=== PATIENT | male | born 1965 | race African-American/Black ===

== ENCOUNTER 2019-08-14 05:59 | Inpatient (IN) | payer BC, OTHER ==
[2019-08-09 09:58] VITALS: BMI 25.1
[2019-08-14] MEDS ORDERED: CEFAZOLIN 2 GM in DEXTROSE 5%-WATER - 50 ML IVPB ONE (06:24)
[2019-08-14] MEDS ORDERED: CELECOXIB 200 MG CAPSULE PO ONE (06:24)
[2019-08-14] MEDS ORDERED: oxyCODONE HCL 10 MG SUSTAINED ACTING TABLET PO ONE (06:24)
[2019-08-14] MEDS ORDERED: TRANEXAMIC ACID 1000 MG/10 ML VIAL IVPUSH ONE (06:24)
[2019-08-14] MEDS ORDERED: BUPIVICAINE 0.25%/MORPH PF/KETOROLAC - 51ML DISP.SYRINGE IA ONE ×2 (06:24→11:25)
[2019-08-14] MEDS ORDERED: PANTOPRAZOLE 40 MG TABLET PO ONE (06:25)
[2019-08-14] MEDS ORDERED: MIDAZOLAM HCL 2 MG/2 ML SINGLE DOSE VIAL ONE ×3 (07:05→07:36)
[2019-08-14] MEDS ORDERED: ROPIVACAINE HCL 0.5% 30ML VIAL ONE ×2 (07:06→07:38)
[2019-08-14] MEDS ORDERED: VANCOMYCIN 1,000 MG VIAL (RESTRICTED TO ID ONLY) ONE (07:10)
[2019-08-14] MEDS ORDERED: ceFAZolin SODIUM 1 GM VIAL ONE ×2 (07:10→11:16)
[2019-08-14] MEDS ORDERED: EPHEDRINE SULFATE/0.9% NACL/PF 50 MG/10 ML SYRINGE NR ONE (07:35)
[2019-08-14] MEDS ORDERED: PROPOFOL 20 ML ONE ×4 (07:35→11:03)
[2019-08-14] MEDS ORDERED: SUCCINYLCHOLINE CHLORIDE 200 MG/10 ML SYRINGE ONE (07:36)
--- NOTE | 2019-08-14 07:43 | HP ---
Admitting History and Physical - Admission Chief Complaint: Left hip osteoarthritis x years History of Present Illness: 54 year old male presents today in regard to his left hip. Longstanding history of left hip osteoarthritis. Patient complains of pain, limited ROM, difficulty ambulating and difficulty completing activities of daily living. Patient has failed conservative treatment options including PO medications, injections, exercise programs and activity modification. Diagnostic testing reveals severe osteoarthritis of the left hip joint. At this point, patient would like to proceed with surgical intervention; a left total hip arthroplasty, MAKOplasty. History Source: Patient - Past Medical History Cardiovascular: Yes: HTN ENT: Yes: Allergic Rhinitis - Past Surgical History Additional Past Surgical History: Right wrist ligament repair in 2004 Right knee ACL reconstruction 1983 - Smoking History Smoking history: Never smoked Home Medications - Allergies Allergies/Adverse Reactions: Allergies Allergy/AdvReac Type Severity Reaction Status Date / Time seasonal Allergy Uncoded 08/09/19 09:50 - Home Medications Home Medications: Ambulatory Orders Telmisartan/Hydrochlorothiazid [Telmisartan-Hctz 40-12.5 mg Tb] 1 each PO DAILY 08/09/19 Review of Systems - Review of Systems Musculoskeletal: reports: Decreased ROM (left hip), Joint Pain (left hip) Physical Examination Vital Signs: Vital Signs Temperature 98 F 08/14/19 06:39 Pulse Rate 70 08/14/19 06:39 Respiratory Rate 18 08/14/19 06:39 Blood Pressure 137/90 08/14/19 06:39 O2 Sat by Pulse Oximetry (%) 98 08/14/19 06:39 Constitutional: Yes: Well Nourished, No Distress Eyes: Yes: Conjunctiva Clear HENT: Yes: Atraumatic Neck: Yes: Supple Cardiovascular: Yes: Regular Rate and Rhythm Respiratory: Yes: Regular Gastrointestinal: Yes: Soft ...Rectal Exam: Yes: Deferred Musculoskeletal: Yes: Joint Stiffness (left hip), Other (Limited ROM left hip) Assessment/Plan 54 year old male presents today in regard to his left hip. Longstanding history of left hip osteoarthritis. Patient complains of pain, limited ROM, difficulty ambulating and difficulty completing activities of daily living. Patient has failed conservative treatment options including PO medications, injections, exercise programs and activity modification. Diagnostic testing reveals severe osteoarthritis of the left hip joint. At this point, patient would like to proceed with surgical intervention; a left total hip arthroplasty, MAKOplasty. Pros, cons, risks, benefits & alternatives of a left total hip arthroplasty, MAKOplasty was discussed with the patient at length. Patient confirms his understanding and consents to proceed with a left total hip arthroplasty - MAKOplasty.
[2019-08-14] MEDS ORDERED: BUPIVACAINE HCL/PF 0.5% (5MG/ML) 10 ML VIAL ONE (08:33)
[2019-08-14] MEDS ORDERED: VANCOMYCIN 1,000 MG VIAL (RESTRICTED TO ID ONLY) IVPB ONE (10:31)
[2019-08-14] MEDS ORDERED: TRANEXAMIC ACID 1000 MG/10 ML VIAL IVPB ONE (10:33)
[2019-08-14] MEDS ORDERED: ceFAZolin SODIUM 1 GM VIAL IVPB ONE (11:19)
[2019-08-14] MEDS ORDERED: TRANEXAMIC ACID 1000 MG/10 ML VIAL ONE (11:48)
--- NOTE | 2019-08-14 12:50 | OP ---
Operative Note - Note: Operative Date: 08/14/19 Pre-Operative Diagnosis: Left hip OA Operation: Left KYREE MARGARET Post-Operative Diagnosis: Same as Pre-op Surgeon: Evan Carrera Boarding House Manager: Antony Metzger Anesthesia: Spinal Estimated Blood Loss (mls): 200
[2019-08-14] MEDS: ACETAMINOPHEN 1000 MG/100 ML VIAL (NON FORMULARY) IVPB ONE ×2 (12:55→14:03)
[2019-08-14] MEDS: traMADol HCL 50 MG TABLET PO SCH ×3 (13:06→19:00)
[2019-08-14] MEDS ORDERED: oxyCODONE HCL 5 MG TABLET PO PRN ×2 (13:19→13:20)
[2019-08-14] MEDS ORDERED: MAGNESIUM HYDROX 2400MG/30ML ORAL SUSPENSION 30 ML CUP PO PRN (13:20)
[2019-08-14] MEDS ORDERED: MAG HYDROX/AL HYDROX/SIMETH 30 ML UNIT-DOSE CUP PO PRN (13:20)
[2019-08-14] MEDS ORDERED: ONDANSETRON 4 MG/2 ML VIAL IVPUSH PRN (13:20)
[2019-08-14] MEDS ORDERED: oxyCODONE HCL 5 MG TABLET ONE (13:21)
[2019-08-14] MEDS ORDERED: LACTATED RINGERS SOLUTION 1,000 ML IV SCH (13:30)
[2019-08-14] MEDS: KETOROLAC TROMETHAMINE 30 MG/1 ML VIAL IVPUSH SCH (17:41)
[2019-08-14] MEDS: CEFAZOLIN 2 GM/D5W 2 GM/50 ML ML IVPB SCH (17:41)
[2019-08-14] MEDS: ACETAMINOPHEN 325 MG TABLET (FP) PO SCH (19:01)
[2019-08-14] MEDS ORDERED: DEXAMETHASONE SOD PHOSPHATE 10 MG/1 ML VIAL IVPB ONE (20:00)
[2019-08-14] MEDS: GABAPENTIN 300 MG CAPSULE PO SCH (21:30)
[2019-08-14] MEDS: ASCORBIC ACID 500 MG TABLET (FP) PO SCH (21:30)
[2019-08-14] MEDS: CELECOXIB 200 MG CAPSULE PO SCH (21:30)
[2019-08-14] MEDS: SENNOSIDES/DOCUSATE COMBO (SENNA PLUS) TABLET (UD) PO SCH (21:30)
[2019-08-14] MEDS: oxyCODONE HCL 10 MG SUSTAINED ACTING TABLET PO SCH (21:31)
[2019-08-15] MEDS: traMADol HCL 50 MG TABLET PO SCH ×4 (00:34→19:11)
[2019-08-15] MEDS: KETOROLAC TROMETHAMINE 30 MG/1 ML VIAL IVPUSH SCH ×3 (00:35→12:42)
[2019-08-15] MEDS: ACETAMINOPHEN 325 MG TABLET (FP) PO SCH ×4 (00:36→19:11)
[2019-08-15] MEDS: CEFAZOLIN 2 GM/D5W 2 GM/50 ML ML IVPB SCH (01:47)
--- NOTE | 2019-08-15 07:17 | SURG ---
Surgery Ecosystem Ecology Professor Note Ecosystem Ecology Professor: Antony Metzger PA-C (Suzy) Date of Service: 08/15/19 Diagnosis: Left hip OA Procedure: Operation: Left KYREE MARGARET I was present for the entirety of the operative procedure. For further detail, please refer to operative report. Visit type - Case Type Case Type: Scheduled - Emergency Emergency Visit: No - New patient This patient is new to me today: Yes Date on this admission: 08/15/19 - Critical Care Critical Care patient: No
[2019-08-15 08:12] LABS: CALCIUM 8.4 mg/dl (8.5-10); POTASSIUM 4.2 mmol/L (3.5-5.1)
[2019-08-15 08:18] LABS: HEMATOCRIT 38.9 % (35.4-49); HEMOGLOBIN 13.2 GM/dl (11.7-16.9); MCH 30.4 pg (25.7-33.7); MEAN CELL VOLUME 89.4 fl (80-96); MEAN PLT VOLUME 8.4 fl (7.5-11.1); PLATELET COUNT 237 K/MM3 (134-434); RBC 4.35 M/mm3 (4.00-5.60); RDW 11.9 % (11.9-15.9); WHITE BLOOD COUNT 12.9 K/mm3 (4.0-10.8)
[2019-08-15] MEDS: ASPIRIN 325 MG TABLET PO SCH (09:00)
[2019-08-15] MEDS: MULTIVITAMINS (DAILY MVI) TABLET (FP) PO SCH (09:26)
[2019-08-15] MEDS: PANTOPRAZOLE 40 MG TABLET PO SCH (09:26)
[2019-08-15] MEDS: oxyCODONE HCL 10 MG SUSTAINED ACTING TABLET PO SCH ×2 (09:26→21:58)
[2019-08-15] MEDS: ASCORBIC ACID 500 MG TABLET (FP) PO SCH ×2 (09:26→21:58)
[2019-08-15] MEDS: CELECOXIB 200 MG CAPSULE PO SCH ×2 (09:27→21:58)
[2019-08-15] MEDS: SENNOSIDES/DOCUSATE COMBO (SENNA PLUS) TABLET (UD) PO SCH ×2 (09:27→21:58)
[2019-08-15] MEDS: HYDROCHLOROTHIAZIDE 12.5 MG CAPSULE (FP) PO SCH (09:27)
[2019-08-15] MEDS: GABAPENTIN 300 MG CAPSULE PO SCH ×2 (09:27→21:58)
[2019-08-15] MEDS: LOSARTAN POTASSIUM 50 MG TABLET (FP) PO SCH (09:28)
--- NOTE | 2019-08-15 12:24 | SPEC ---
DATE OF OPERATION: 08/14/2019 PREOPERATIVE DIAGNOSIS: Left hip osteoarthritis. POSTOPERATIVE DIAGNOSIS: Left hip osteoarthritis. PROCEDURE: Left total hip replacement with JEAN MARIE plasty robotic navigation. ATTENDING: Richard Taveras MD INTERCEPTOR OPERATOR: RUDY Galvez ANESTHESIA: Spinal plus sedation. ESTIMATED BLOOD LOSS: 200 mL. COMPLICATIONS: None. DISPOSITION: The patient was transferred to the PACU in stable condition. IMPLANTS USED: Johann Accolade II size 7 femoral compartment with 127-degree neck angle, 56-mm acetabular component with 15, 20, and 25-mm acetabular screws. MDM bipolar head ball and liner with inner +8-mm offset head ball. INDICATIONS: This is a 54-year-old male who presented to the office complaining of bilateral hip pain. He was seen and examined by Dr. Taveras, diagnosed with bilateral hip osteoarthritis. The patient's left hip was significantly more painful than the right, though both appeared to be degenerated on radiographs. He was initially treated conservatively but continued to have severe pain and ambulatory dysfunction. He was therefore indicated for a left total hip replacement. The risks, benefits, and alternatives to the procedure were explained to the patient in great detail, and the patient elected to proceed with the surgery. DESCRIPTION OF PROCEDURE: On the day of surgery, the patient was taken to the operating room and placed on the OR table. Spinal anesthesia was administered by the anesthesiologist. The patient was then positioned in the lateral decubitus position on the table and all bony prominences were padded. An axillary roll was placed. The operative hip was then prepped and draped in the usual sterile fashion and intravenous antibiotics were given for infection prophylaxis. A surgical time-out was then performed with the team, and the patients identity, procedure, side, availability of implants, and the administration of antibiotics were confirmed. An approximately 15-cm longitudinal incision was made through the skin centered on the greater trochanter of the hip. This dissection was carried down through the subcutaneous tissues to the deep fascia. This fascia was then incised and a Cobra was placed around the inferior femoral neck. Electrocautery was used to reflect the anterior 40% of the gluteus medius and minimus starting at the musculotendinous junction and leaving a cuff for closure. This was reflected to reveal the capsule of the hip joint. An anterior capsulectomy was performed and the femoral head and neck were visualized. Grade 4 changes were noted diffusely throughout the joint. At this point, three small stab incisions were made superior to the main incision along the iliac crest. Three self-drilling Steinmann pins were then placed and the [facility] pelvic array was attached. Reference points on the limb were then entered into the robotic device and the limb length deficiency, offset, and femoral neck resection level were then calculated by the software. The hip was then dislocated with traction and external rotation. An oscillating saw was used to make the femoral neck cut at the level previously templated, and the femoral head was removed. Attention was then turned to the acetabulum. Retractors were then placed around the acetabulum and the labrum was removed. An acetabular checkpoint pin and the [facility] software were used to register the contours of the acetabulum. The acetabulum was then reamed in a single stage to the preoperatively templated size using the [facility] robotic arm. The appropriately sized cup was then impacted and had solid fixation as well as the preset inclination and version of 40 and 20 degrees, respectively. A polyethylene liner was then placed in the cup. Attention was then turned back to the femur, which was externally rotated for improved visualization. A femoral neck elevator was used to present the femoral neck cut, a box osteotome was used to enter the femoral canal, and a canal finder was used to go down the femoral shaft. The Jean Marie broaches were used sequentially until the optimal scratch fit was achieved. This correlated with the preoperatively templated size. From here, several different offset head and neck configurations were tested until excellent stability and length were obtained. These measurements were quantified using the [facility] software. All trial components were then removed, the femur was copiously irrigated, and the final components were placed. Leg length and stability were checked again and found to be excellent. Irrigation was performed again. Wound closure was started by repairing the abductor muscles with a no. 2 FiberWire stitch in a Krackow configuration passed through bone tunnels in the greater trochanter and tied over a bony bridge. This repair was then reinforced with a 0 V-Loc 180 barbed suture. Next, no. 1 Polysorb and 0 V-Loc 180 were used to close the fascia. The deep subcutaneous tissue was closed with no. 1 Polysorb sutures, and 2-0 Polysorb was used for the superficial subcutaneous tissue. The skin was closed using both 3-0 V-Loc 90 suture in a running subcuticular fashion and SwiftSet skin adhesive. The Jean Marie array and pins were removed from the iliac crest and the stab incision sites were irrigated and closed with 4-0 Polysorb sutures and SwiftSet skin adhesive. Once this was completed, a sterile dressing was applied. The patient was then awakened and taken to the PACU in stable condition. ADDENDUM: After final implants were placed, a 3-minute Betadine soak was performed. Following this, the wound was thoroughly irrigated with normal saline via pulsatile lavage and wound closure was begun. RICHARD TAVERAS M.D. [id number]
--- NOTE | 2019-08-15 20:58 | PN ---
Progress Note (short form) - Note Progress Note: Pt seen and examined. Doing well. AVSS Selected Entries 08/15/19 18:00 Temperature 99.6 F Pulse Rate 60 Respiratory 18 Rate Blood Pressure 145/90 O2 Sat by Pulse 100 Oximetry (%) Oxygen Delivery Room Air Method Laboratory Tests 08/15/19 08/15/19 07:18 07:18 WBC 12.9 H Hgb 13.2 Hct 38.9 Plt Count 237 Sodium 133 L Potassium 4.2 Chloride 99 Carbon Dioxide 26 Anion Gap 8 BUN 20.0 H Creatinine 1.0 Est GFR (CKD-EPI)AfAm 97.08 Est GFR (CKD-EPI)NonAf 83.76 Random Glucose 114 H Calcium 8.4 L Gen: NAD LLE: c/d/i, NVID A/P POD#1 s/p L MARGARET PT/OOB - doing well. Would benefit from additional PT tomorrow morning before discharge home. D/C home in AM after PT.
--- NOTE | 2019-08-15 20:59 | DS ---
Physical Examination Vital Signs: Vital Signs Temperature 99.6 F 08/15/19 18:00 Pulse Rate 60 08/15/19 18:00 Respiratory Rate 18 08/15/19 18:00 Blood Pressure 145/90 08/15/19 18:00 O2 Sat by Pulse Oximetry (%) 100 08/15/19 18:00 Labs: CBC, BMP 08/15/19 07:18 08/15/19 07:18 Discharge Summary Problems reviewed: Yes Reason For Visit: LEFT HIP OSTEOARTHRITIS Current Active Problems Osteoarthritis of left hip (Acute) Procedures: Principal: left KYREE MARGARET Hospital Course: Admitted for elective surgery. Procedure performed without complications. Pt received postoperative antibiotic prophylaxis and DVT ppx. Ambulated with physical therapy. Stable for discharge home with outpatient followup. Condition: Stable - Instructions Diet, Activity, Other Instructions: Dr Carrera - Hip Replacement Instructions Keep the Aquacel dressing on until removed by Dr. Carrera in 2 weeks - it is antibacterial and waterproof and you can shower with it on. Call the office for a follow-up appointment with Dr. Carrera in 2 weeks. [phone] Take one Aspirin 325mg daily for 6 weeks to prevent blood clots in your legs. Take one Pantoprazole 40mg daily for 6 weeks to protect against heartburn and ulcers. Take Cephalexin (antibiotic) 3x/day for 10 days to help prevent skin infection. Take Celebrex 200mg twice daily for 30 days to reduce swelling and inflammation. Take a multivitamin, stool softener and extra Vitamin C supplement daily. For pain: *Mild pain (1-3/10): Take 1 Tramadol tablet every 4 hours as needed. Moderate pain (4-6/10): Take 1 Tramadol tablet and 1 Percocet tablet every 4 hours as needed. Severe pain (7-10/10): Take 1 Tramadol tablet and 2 Percocet tablets every 4 hours as needed. Activity: You can put as much weight on the operative leg as you want. For the first 6 weeks, all you need to do is walk around the house, go up/down stairs, and sit down/get up. After 6 weeks when everything is healed (and bone has grown into the implant) you will be sent for more intensive outpatient physical therapy. Always use a walker or cane for balance and to prevent falls. Expect to see swelling / bruising from the operative site all the way down to your toes. Wear the Compression stocking on the operative side during the day to minimize how much swelling there is in your foot/ankle. Don't wear the stocking at night. You don't have to wear the stocking on the other side. Disposition: VNS/HOME HEALTH CARE - Home Medications Comprehensive Discharge Medication List: Ambulatory Orders Telmisartan/Hydrochlorothiazid [Telmisartan-Hctz 40-12.5 mg Tb] 1 each PO DAILY 08/09/19 Ascorbic Acid [Vitamin C -] 500 mg PO BID tablet 08/14/19 Aspirin [ASA -] 325 mg PO DAILY@0800 tablet 08/14/19 Celecoxib [CeleBREX -] 200 mg PO BID #60 capsule 08/14/19 Cephalexin Monohydrate [Keflex -] 500 mg PO TID #30 capsule 08/14/19 Multivitamins [Multivit ([facility] Formul[facility])] 1 tab PO DAILY tab 08/14/19 Oxycodone HCl/Acetaminophen [Percocet 5-325 mg Tablet] 1 - 2 tab PO Q4H PRN #60 tablet MDD 10 08/14/19 Pantoprazole Sodium [Protonix -] 40 mg PO DAILY #40 tablet.ec 08/14/19 Sennosides/Docusate Sodium [Pericolace -] 2 tablet PO BID tablet 08/14/19 traMADol HCL [Ultram -] 50 mg PO Q4H PRN #60 tablet MDD 6 08/14/19 Oxycodone HCl/Acetaminophen [Percocet 5-325 mg Tablet] 1 - 2 tab PO Q4H PRN #60 tablet MDD 10 08/15/19 traMADol HCL [Ultram -] 50 mg PO Q4H PRN #60 tablet MDD 6 08/15/19
[2019-08-16] MEDS: traMADol HCL 50 MG TABLET PO SCH ×3 (00:37→12:31)
[2019-08-16] MEDS: ACETAMINOPHEN 325 MG TABLET (FP) PO SCH ×3 (00:37→12:31)
[2019-08-16 08:42] LABS: HEMATOCRIT 37.5 % (35.4-49); HEMOGLOBIN 12.6 GM/dl (11.7-16.9); MCH 29.9 pg (25.7-33.7); MCHC 33.6 g/dl (32.0-35.9); MEAN CELL VOLUME 89.1 fl (80-96); MEAN PLT VOLUME 8.2 fl (7.5-11.1); PLATELET COUNT 216 K/MM3 (134-434); RBC 4.21 M/mm3 (4.00-5.60); RDW 11.9 % (11.9-15.9); WHITE BLOOD COUNT 9.6 K/mm3 (4.0-10.8)
[2019-08-16] MEDS: LOSARTAN POTASSIUM 50 MG TABLET (FP) PO SCH (09:23)
[2019-08-16] MEDS: GABAPENTIN 300 MG CAPSULE PO SCH (09:23)
[2019-08-16] MEDS: ASPIRIN 325 MG TABLET PO SCH (09:23)
[2019-08-16] MEDS: MULTIVITAMINS (DAILY MVI) TABLET (FP) PO SCH (09:23)
[2019-08-16] MEDS: CELECOXIB 200 MG CAPSULE PO SCH (09:23)
[2019-08-16] MEDS: PANTOPRAZOLE 40 MG TABLET PO SCH (09:23)
[2019-08-16] MEDS: HYDROCHLOROTHIAZIDE 12.5 MG CAPSULE (FP) PO SCH (09:23)
[2019-08-16] MEDS: ASCORBIC ACID 500 MG TABLET (FP) PO SCH (09:23)
[2019-08-16] MEDS: SENNOSIDES/DOCUSATE COMBO (SENNA PLUS) TABLET (UD) PO SCH (09:23)
[2019-08-16] MEDS: oxyCODONE HCL 10 MG SUSTAINED ACTING TABLET PO SCH (09:24)
--- NOTE | 2019-08-16 13:29 | PN ---
Progress Note (short form) - Note Progress Note: ANESTHESIA POSTOP 54 YO MALE POD#1 S/P MARGARET, SPINAL Patient sitting in chair. No complaints. Tolerating PO. VSS, Afebrile Continue current care. No anesthetic complications. Encouraged IS and active participation in PT
[2019-08-16 14:25] VITALS: BP 124/80; PULSE 72; TEMP 98.7
--- NOTE | 2019-08-16 14:32 | PATH ---
Surgical Pathology Report Patient Name: CHARLES MARTINEZ Med. Rec. #: [id number] /Age/Gender: 1965 (Age: 54) / M Account: [id number] Location: [facility] MED-SURG Taken: 08/14/2019 Received: 08/14/2019 Reported: 08/16/2019 Physicians: Evan Carrera M.D. Specimen(s) Received LEFT FEMORAL HEAD Clinical History Left hip osteoarthritis Final Diagnosis FEMORAL HEAD, LEFT, TOTAL HIP REPLACEMENT: DEGENERATIVE JOINT DISEASE. Electronically Signed Henrietta Cantu M.D. Gross Description Received in formalin, labeled "left femoral head," is a 4.8 x 4.8 x 4.3 cm. femoral head with a 1.1 cm in length portion of femoral neck attached. The margin of resection is smooth. There is a 4.8 cm in greatest dimension area of eburnation present. The remaining articular surface is mcfarlane-yellow and diffusely nodular and granular. Sectioning reveals a possible cystic structure containing mucinous material. A sales and service representative section is submitted in one cassette, following decalcification. 08/15/2019 [facility]08/15/2019
== END 2019-08-16 17:35 | disposition home health service (06) | DRG 470 ==
LOC: FASUSAT 05:59 → EDSTATUS 08:00 → FASUSAT 08:42 → FM/S 08:42
PROVIDERS: ADMIT Student in an Organized Health Care Education/Training Program; ATTEND Student in an Organized Health Care Education/Training Program
PROC: 8E0W0CZ Robotic Assisted Procedure of Trunk Region, Open Approach (ICD-10-PCS; 2019-08-14)
PROC: 0SRB0JZ Replacement of Left Hip Joint with Synthetic Substitute, Open Approach (ICD-10-PCS; principal; 2019-08-14 09:18)
DX: M16.12 Unilateral primary osteoarthritis, left hip (principal); I10 Essential (primary) hypertension; J30.9 Allergic rhinitis, unspecified
CPT/HCPCS: 36415; 73502-TC-LT-FY; 80048; 85027; 88305-TC; 88311-TC; 94760; 97116-GP; 97162-GP; J0131; J1100

== ENCOUNTER 2019-10-04 14:50 | Emergency (ER) | payer BC ==
--- NOTE | 2019-10-04 14:53 | PDOC ---
Attending Attestation - Resident Resident Name: Libby Talbert - ED Attending Attestation I have performed the following: I have examined & evaluated the patient, The case was reviewed & discussed with the resident, I agree w/resident's findings & plan, Exceptions are as noted - HPI HPI: 10/04/19 16:12 Left hip replacement August 13. Was healing well until 2 days ago, when midportion of the wound opened. A small amount of purulent drainage was noted, as well as surrounding erythema and tenderness. He restarted antibiotics, cephalexin 500 mg, took 2 doses thus far. He is ambulating well without significant pain. There is been no fever, chills, or other sign of systemic infection - Physicial Exam PE: 10/04/19 16:15 Afebrile, vital signs normal. PE reveals dehiscence of midportion of wound approximately 2 cm in length, with small amount of purulent drainage present. There is surrounding erythema and induration, which is mild, as well as mild tenderness. There is no significant pain with range of motion of the hip itself. - Medical Decision Making 10/04/19 16:17 Assessment: Wound dehiscence, probable infection Plan: Thoroughly discussed the situation with the patient. The possibility of an infected prosthetic was discussed. It was decided to perform a wound culture, continue antibiotics, and have him follow-up within 24 hours with his surgeon, to obtain further imaging and direct further treatment. He understands and agrees. We will continue antibiotics and follow-up with Dr. Carrera tomorrow. Fully ambulatory in no significant pain at discharge. Discharge - Discharge Information Problems reviewed: Yes Clinical Impression/Diagnosis: Surgical wound infection Condition: Stable Disposition: HOME - Admission No - Additional Discharge Information Prescriptions: Bacitracin - [Bacitracin Topical Ointment -] 1 applic TP BID #1 tube Cephalexin [Keflex] 500 mg PO Q6H #28 capsule - Follow up/Referral Referrals: Evan Carrera MD [Staff Physician] - - Patient Discharge Instructions Patient Printed Discharge Instructions: DI for Wound Dehiscence, DI for Wound Infection Additional Instructions: Discharge Instructions: You were seen in the emergency department with an infection of your surgical wound. Home Care and Follow Up: - You will need to continue taking the antibiotics that were prescribed after your surgery. More have been sent to the pharmacy. The antibiotic should be taken every 6 hours until you are able to follow up with Dr Carrera - Keep the wound clean with plain soap and water. Pat to dry, do not scrub. Apply bacitracin ointment and dress with a clean gauze twice per day - Call as soon as possible to set up a follow up appointment with Dr Carrera. You should be seen within the next 2-3 days. - Seek immediate care for worsening symptoms, if you have bleeding from the wound, if it becomes more swollen or red, if you have fever to 101F, if you are unable to walk, or if you have any other medical emergency. - Post Discharge Activity
[2019-10-04 14:58] VITALS: BP 135/92; PULSE 76; TEMP 98.4; BMI 24.4
--- NOTE | 2019-10-04 15:18 | PDOC ---
History of Present Illness - General Chief Complaint: Wound Stated Complaint: LEFT HIP WOUND CHECK Time Seen by Provider: 10/04/19 14:53 - History of Present Illness Initial Comments: Mahendra Gomes is a 54yo man with a PMH of HTN, OA s/p left hip replacement on 08/13 who presents reporting that his surgical incision "opened up" recently, and he would like it to be re-sutured. He says that it had been healing well but seems to have opened over the past few days. He has been washing the wound with hydrogen peroxide. He denies any fevers, chills, spreading redness, bleeding or drainage from the wound. He says that he did text his surgeon yesterday but did not speak with him. Mr Gomes reports that he was prescribed antibiotics after the surgery, which he took twice per day for several weeks (prescribed TID), but he wanted to "wean" himself off of all of his post-operative mediations. He restarted the antibiotics yesterday and has taken two doses. Past History - Medical History Allergies/Adverse Reactions: Allergies Allergy/AdvReac Type Severity Reaction Status Date / Time No Known Drug Allergies Allergy Unknown Verified 10/04/19 14:52 seasonal Allergy Uncoded 10/04/19 14:52 Home Medications: Ambulatory Orders Telmisartan/Hydrochlorothiazid [Telmisartan-Hctz 40-12.5 mg Tb] 1 each PO DAILY 08/09/19 Celecoxib [CeleBREX -] 200 mg PO BID #60 capsule 08/14/19 Cephalexin Monohydrate [Keflex -] 500 mg PO TID #30 capsule 08/14/19 Bacitracin - [Bacitracin Topical Ointment -] 1 applic TP BID #1 tube 10/04/19 Cephalexin [Keflex] 500 mg PO Q6H #28 capsule 10/04/19 Anemia: No Asthma: No Cancer: No Cardiac Disorders: No CVA: No COPD: No CHF: No Dementia: No Diabetes: No GI Disorders: No Disorders: No HTN: Yes Hypercholesterolemia: No Liver Disease: No Seizures: No Thyroid Disease: No - Surgical History Abdominal Surgery: No Appendectomy: No Cardiac Surgery: No Cholecystectomy: No Lung Surgery: No Neurologic Surgery: No Orthopedic Surgery: Yes (Right ACL Reconstruction) - Psycho-Social/Smoking History Smoking History: Never smoked Have you smoked in the past 12 months: No Information on smoking cessation initiated: No - Substance Abuse Hx (Audit-C & DAST Scrn) How often the patient has a drink containing alcohol: Monthly or less Score: In Men: 4 or > Positive; In Women: 3 or > Positive: 1 Screen Result (Pos requires Nsg. Audit-10AR): Negative In the last yr the pt used illegal drug/Rx for NonMed reason: No Score: Yes response is considered Positive: 0 Screen Result (Positive result requires Nsg. DAST-10): Negative Review of Systems - Review of Systems Comments:: General: No fevers, no chills, no weight or appetite change, no malaise HEENT: No changes in vision, no changes in hearing, no congestion, no sore throat CV: No chest pain, no palpitations, no LE edema Pulm: No SOB, no cough, no wheezing GI: No nausea or vomiting, no change in bowel habits, no melena : No frequency, no urgency, no dysuria Musc: No back pain, no joint swelling, no recent injury. S/p L hip replacement, see HPI Skin: No rash, no lesions, no erythema. See HPI Endo: No excessive thirst, no heat/cold intolerance Heme: No unusual bruising or bleeding, no swollen glands Neuro: No syncope, no numbness/tingling, no focal weakness Vasc: No claudication Psych: No recent change in mood, no SI or HI *Physical Exam - Vital Signs Last Vital Signs Temp Pulse Resp BP Pulse Ox 98.4 F 76 18 135/92 100 10/04/19 14:50 10/04/19 14:50 10/04/19 14:50 10/04/19 14:50 10/04/19 14:50 - Physical Exam General: Comfortable, no acute distress HEENT: PERRL, EOMI, MMM, voice normal, normal neck ROM Cards: RRR, no murmur appreciated Pulm: Comfortable on room air, clear to auscultation bilaterally Abd: Soft, nontender, nondistended Ext: Atraumatic. No LE edema. ROM intact. WWP. L hip with surgical incision with 2 areas of dehiscence at superior aspect approx 2cm x 1cm and mid-incision sadaf nissa 1x1cm. Indurated around areas of dehiscence, mildly erythematous, no significant drainage. Small amount of fibrinous exudate v pus visible. Inferior dehiscence with small amount of tracking under skin along incision Neuro: A&Ox3, CN grossly intact, normal speech, motor/sensory grossly intact and symmetric Psych: Mood appropriate to situation Medical Decision Making - Medical Decision Making 10/04/19 15:18 Mahendra Gomes is a 54yo man with a PMH of HTN, OA s/p left hip replacement on 08/13 who presents with dehiscence of his surgical incision. - Wound with two areas of dehiscence, surrounding induration and tenderness. Likely wound infection - Will send culture, re-dress wound - Pt already taking abx. Should continue, will advise to increase to Q6h until he sees his orthopedic surgeon 10/04/19 15:44 - Wound culture sent - Discussed home care, importance of prompt follow up in detail. Advised regarding return precautions. Pt states understanding and agreement; he will call his surgeon today to try to reschedule his appointment, currently scheduled for next week. Discussed with Dr Marcial Talbert PGY3 Discharge - Discharge Information Problems reviewed: Yes Clinical Impression/Diagnosis: Surgical wound infection Condition: Stable Disposition: HOME - Admission No - Additional Discharge Information Prescriptions: Bacitracin - [Bacitracin Topical Ointment -] 1 applic TP BID #1 tube Cephalexin [Keflex] 500 mg PO Q6H #28 capsule - Follow up/Referral Referrals: Evan Carrera MD [Staff Physician] - - Patient Discharge Instructions Patient Printed Discharge Instructions: DI for Wound Dehiscence, DI for Wound Infection Additional Instructions: Discharge Instructions: You were seen in the emergency department with an infection of your surgical wound. Home Care and Follow Up: - You will need to continue taking the antibiotics that were prescribed after your surgery. More have been sent to the pharmacy. The antibiotic should be taken every 6 hours until you are able to follow up with Dr Carrera - Keep the wound clean with plain soap and water. Pat to dry, do not scrub. Apply bacitracin ointment and dress with a clean gauze twice per day - Call as soon as possible to set up a follow up appointment with Dr Carrera. You should be seen within the next 2-3 days. - Seek immediate care for worsening symptoms, if you have bleeding from the wound, if it becomes more swollen or red, if you have fever to 101F, if you are unable to walk, or if you have any other medical emergency. - Post Discharge Activity
--- NOTE | 2019-10-06 11:14 | PDOC ---
Patient Follow-up (Call Back) - Post ED Follow - Up Chief Complaint: Wound Condition at time of discharge: Stable Disposition at time of original discharge: HOME Reason for Call Back: Abnwl. Microbiology Signs/Symptoms Improved: Yes - Disposition Referral:: Evan Carrera Rx Needed: Yes (Rx for Bactrim DS #2 pills bid sent) Additional Instructions/Notes: I spoke with the patient about the results of his wound culture showing likely MRSA. He states he has been taking the new Keflex as prescribed, dosing once every 6 hours. He followed up with Dr. Carrera in office yesterday and had wound check and cleanup with Dr. Carrera at that time. He states he has been feeling well without any new symptoms. Patient states he will be following up with Dr. Carrera again in the next couple of days and that Dr. Carrera is keeping a close eye on the wound. I tell the patient he should continue the Keflex prescription exactly the same, but that I am sending a prescription to his pharmacy for an additional antibiotic, Bactrim. Explicit instructions will be on the medication label and he understands he will need to be taking both of these courses of antibiotics concurrently. I discuss return precautions with the patient, namely fever, malaise, worsening skin redness or streaking redness around the wound, or new purulent drainage. He understands and will return to the ED for any of these symptoms or call his surgeon if they are able to fit him in for an immediate appointment. I have placed a call to Dr. Carrera's office to inform them of the presumptive MRSA on wound culture and the additional E-Rx for Bactrim.
== END 2019-10-04 16:00 | disposition home or self-care (01) ==
LOC: FER 14:50
DX: T81.40XA Infection following a procedure, unspecified, initial encounter (principal)
CPT/HCPCS: 87070; 87186; 87205; 99283-25